=== PATIENT | female | born 1960 | race Caucasian/White ===

== ENCOUNTER 2017-06-15 13:05 | Emergency (ER) | payer MEDICARE, OTHER ==
[2017-06-15 15:16] LABS: BASOPHIL 0.6 % (0-2); EOSINOPHIL 3.2 % (0-5); HCT 41.3 % (37.0-47.0); HGB 13.7 g/dl (12.5-16.0); MCH 30.6 pg (25.0-31.0); MCHC 33.2 g/dL (32.0-36.0); MCV 92.2 fL (78.0-100.0); MONOCYTE 9.1 % (0-12); MPV 10.6 fL (6.0-9.5); NEUTROPHIL 56.1 % (41-80); PLT 223 K/uL (150-400); RBC 4.48 M/uL (4.20-5.40); WBC 5.3 K/uL (4.0-10.5)
[2017-06-15 15:35] LABS: BILIRUBIN NEGATIVE (NEGATIVE); BLOOD NEGATIVE Ery/uL (NEGATIVE); CLARITY CLEAR (CLEAR); COLOR YELLOW (YELLOW); GLUCOSE (U) NORMAL (NORMAL); KETONE (U) NEGATIVE (NEGATIVE); LEUKOCYTES NEGATIVE Leu/uL (NEGATIVE); NITRITE NEGATIVE (NEGATIVE); PROTEIN NEGATIVE (NEGATIVE); UROBILINOGEN 0.2 mg/dL (0.2-1.0); pH 7.5 (5.0-9.0)
[2017-06-15 15:37] LABS: ALBUMIN 4.1 g/dL (3.5-5.0); BILIRUBIN - TOTAL 0.2 mg/dL (0.1-1.0); GLOBULIN (CALCULATION) 2.6 g/dL (2.2-4.2); MAGNESIUM 2.06 mg/dL (1.40-2.10); POTASSIUM 4.2 mmol/L (3.5-5.1); TOTAL PROTEIN 6.7 g/dL (6.4-8.3)
[2017-06-15 15:40] LABS: AMPHETAMINES NEGATIVE (NEGATIVE); BARBITURATES POSITIVE (NEGATIVE); BENZODIAZEPINES POSITIVE (NEGATIVE); COCAINE NEGATIVE (NEGATIVE); MARIJUANA (THC) NEGATIVE (NEGATIVE); METHADONE NEGATIVE (NEGATIVE); TRICYCLIC ANTIDEPRESSANT NEGATIVE (NEGATIVE)
== END 2017-06-15 19:34 | disposition home or self-care (01) ==
LOC: FER 13:05
PROVIDERS: Internal Medicine
DX: R25.9 Unspecified abnormal involuntary movements (principal); I10 Essential (primary) hypertension; Z88.2 Allergy status to sulfonamides; Z79.899 Other long term (current) drug therapy
CPT/HCPCS: 36415; 70450; 80053; 80305; 81003; 83735; 85025; 93005

== ENCOUNTER 2020-10-22 12:00 | Emergency (ER) | payer MEDICARE, OTHER ==
[~2020-10-22 12:00] MED LIST: ATIVAN0.5 MG PO; MYSOLINE250 MG PO; NAPROXEN500 MG PO; NORCO 5-325 TA1 EACH PO; ONDANSETRON ODT4 MG SL; PAXIL20 MG PO; PROPRANOLOL HC120 MG PO
[2020-10-22] MEDS ORDERED: NAPROXEN500 MG PO (15:14)
== END 2020-10-22 16:10 | disposition home or self-care (01) ==
LOC: FER 12:00
DX: S09.90XA Unspecified injury of head, initial encounter (principal); S50.01XA Contusion of right elbow, initial encounter; I10 Essential (primary) hypertension; Z88.2 Allergy status to sulfonamides; W18.09XA Striking against other object with subsequent fall, initial encounter; Y92.219 Unspecified school as the place of occurrence of the external cause
CPT/HCPCS: 73080; 73130

== ENCOUNTER 2021-09-18 11:26 | Emergency (ER) | payer MEDICARE, OTHER ==
[2021-09-18 12:06] LABS: BASOPHIL 0.9 % (0-2); EOSINOPHIL 5.4 % (0-5); HGB 13.4 g/dl (12.5-16.0); LYMPHOCYTE 34.9 % (15-48); MCH 29.8 pg (25.0-31.0); MCHC 32.7 g/dL (32.0-36.0); MCV 91.1 fL (78.0-100.0); MONOCYTE 11.2 % (0-12); MPV 10.6 fL (6.0-9.5); NEUTROPHIL 47.2 % (41-80); NRBC 0; PLT 240 K/uL (150-400); RDW 13.2 % (11.5-14.0); WBC 5.6 K/uL (4.0-10.5)
[2021-09-18 12:17] LABS: ALBUMIN 3.9 g/dL (3.4-5.0); BILIRUBIN - TOTAL 0.2 mg/dL (0.2-1.0); BUN/CREAT RATIO (CALC) 15.5 RATIO; CREATININE 0.97 mg/dL (0.51-0.95); GLOBULIN (CALCULATION) 3.2 g/dL; POTASSIUM 4.1 mmol/L (3.5-5.1); TOTAL PROTEIN 7.1 g/dL (6.4-8.2)
[2021-09-18 12:57] LABS: BILIRUBIN NEGATIVE (NEGATIVE); BLOOD NEGATIVE Ery/uL (NEGATIVE); CLARITY CLEAR (CLEAR); COLOR YELLOW (YELLOW); GLUCOSE (U) NORMAL (NORMAL); LEUKOCYTES NEGATIVE Leu/uL (NEGATIVE); NITRITE NEGATIVE (NEGATIVE); PROTEIN NEGATIVE (NEGATIVE); UROBILINOGEN 0.2 mg/dL (0.2-1.0)
== END 2021-09-18 14:16 | disposition home or self-care (01) ==
LOC: FER 11:26
PROVIDERS: Emergency Medicine
DX: G40.909 Epilepsy, unspecified, not intractable, without status epilepticus (principal); I10 Essential (primary) hypertension; Z88.2 Allergy status to sulfonamides
CPT/HCPCS: 36415; 70450; 80053; 81003; 85025; J1953; J2060

== ENCOUNTER 2021-09-29 12:09 | Emergency (ER) | payer MEDICARE, OTHER ==
[2021-09-29 12:42] LABS: BASOPHIL 0.9 % (0-2); EOSINOPHIL 4.9 % (0-5); HCT 40.5 % (37.0-47.0); HGB 13.2 g/dl (12.5-16.0); LYMPHOCYTE 32.2 % (15-48); MCH 29.9 pg (25.0-31.0); MCHC 32.6 g/dL (32.0-36.0); MCV 91.6 fL (78.0-100.0); MONOCYTE 10.7 % (0-12); MPV 10.5 fL (6.0-9.5); NEUTROPHIL 51.1 % (41-80); NRBC 0; PLT 234 K/uL (150-400); RBC 4.42 M/uL (4.20-5.40); RDW 12.9 % (11.5-14.0); WBC 5.5 K/uL (4.0-10.5)
[2021-09-29 12:57] LABS: BUN/CREAT RATIO (CALC) 14.6 RATIO; CREATININE 0.96 mg/dL (0.51-0.95); POTASSIUM 4.3 mmol/L (3.5-5.1)
== END 2021-09-29 16:51 | disposition home or self-care (01) ==
LOC: FER 12:09
PROVIDERS: Nurse Practitioner Family
DX: G40.909 Epilepsy, unspecified, not intractable, without status epilepticus (principal); Z88.2 Allergy status to sulfonamides
CPT/HCPCS: 36415; 80048; 85025; J1953; J2060

== ENCOUNTER 2022-01-19 09:52 | Emergency (ER) | payer MEDICARE, OTHER ==
[~2022-01-19] VITALS: Ht 180.3 cm; Wt 124.7 kg
== END 2022-01-19 13:17 | disposition home or self-care (01) ==
LOC: FER 09:52
DX: S09.90XA Unspecified injury of head, initial encounter (principal); I10 Essential (primary) hypertension; Z88.2 Allergy status to sulfonamides; W01.190A Fall on same level from slipping, tripping and stumbling with subsequent striking against furniture, initial encounter; Y92.89 Other specified places as the place of occurrence of the external cause; Y99.0 Civilian activity done for income or pay
CPT/HCPCS: 72040